=== PATIENT | female | born 1995 | race Caucasian/White ===

== ENCOUNTER 2017-04-14 17:22 | Emergency (ER) | payer BC ==
[~2017-04-14] VITALS: Ht 157.5 cm; Wt 60.4 kg
[~2017-04-14 17:22] MED LIST: MACROBID100 MG PO; NOHOMEMEDS; ORTHO TRI-CY1 TABLE1 PO
[2017-04-14] MEDS ORDERED: XYLOCAINE VISC100 ML PO (19:01)
[2017-04-14] MEDS ORDERED: MOTRIN600 MG PO (19:01)
[2017-04-14 19:09] VITALS: BP 126/91
== END 2017-04-14 19:10 | disposition home or self-care (01) ==
LOC: EME 17:22
DX: R11.2 Nausea with vomiting, unspecified (principal); T36.3X5A Adverse effect of macrolides, initial encounter; J02.9 Acute pharyngitis, unspecified; Z79.3 Long term (current) use of hormonal contraceptives
CPT/HCPCS: 87651 90; 99281; 99283